=== PATIENT | male | born 2000 | race Caucasian/White ===

== ENCOUNTER 2024-01-30 06:29 | Emergency (ER) | payer SELFPAY ==
[~2024-01-30] VITALS: Ht 182.9 cm; Wt 73.0 kg
[2024-01-30 06:44] VITALS: O2SAT 100
[2024-01-30] MEDS: ACETAMINOPHEN WITH CODEINE 300/30MG TABLET PO ONE (08:04)
[2024-01-30] MEDS ORDERED: IBUP-2028 PO (08:10)
[2024-01-30] MEDS ORDERED: CLIN-116 PO (08:12)
[2024-01-30 08:54] VITALS: BP 145/98; PULSE 70; RESP 20; TEMP 97.7
== END 2024-01-30 09:01 | disposition home or self-care (01) ==
LOC: ER 06:29
DX: S62.394A Other fracture of fourth metacarpal bone, right hand, initial encounter for closed fracture (principal); Z88.0 Allergy status to penicillin; X58.XXXA Exposure to other specified factors, initial encounter; Y93.89 Activity, other specified; Y92.89 Other specified places as the place of occurrence of the external cause; Y99.8 Other external cause status
CPT/HCPCS: 29125; 73130; 99283